=== PATIENT | female | born 2000 | race Two or more races ===

== ENCOUNTER 2020-03-06 19:14 | Emergency (ER) | payer MEDICAID, OTHER ==
[~2020-03-06] VITALS: Ht 162.6 cm; Wt 113.4 kg
[2020-03-06 19:48] VITALS: BP 140/93
[2020-03-06] MEDS ORDERED: ONDANSETRON ODT 4 MG TAB PO ONE (23:15)
[2020-03-06] MEDS ORDERED: BACITRACIN TOP OINT 1 UD PKG TOP ONE (23:15)
[2020-03-06] MEDS ORDERED: KETOROLAC TROMETH 60MG/2ML VIAL IM ONE (23:15)
== END 2020-03-07 00:09 | disposition home or self-care (01) ==
LOC: ER 19:14
DX: R51 Headache (principal); Y04.0XXA Assault by unarmed brawl or fight, initial encounter; Y93.89 Activity, other specified; Y92.89 Other specified places as the place of occurrence of the external cause; Y99.9 Unspecified external cause status
CPT/HCPCS: 72125; 73120; 96372; 99284; J1885; Q0162